=== PATIENT | female | born 1960 | race Caucasian/White ===

== ENCOUNTER → 2019-07-10 | Outpatient (CLI) | payer OTHER ==
--- NOTE | 2019-07-10 12:36 | Diagnostic Imaging Report ---
INDICATION: Left ankle pain AP, lateral, and oblique views of the left ankle are obtained. There is no prior study for comparison. [place] screw is visualized in the calcaneus posteriorly. There is plantar and posterior calcaneal spurring. There is no acute fracture seen. There is accessory ossicle inferior to the medial malleolus of the distal tibia. There are accessory ossicles inferior to the distal tip of the lateral malleolus of the distal fibula. IMPRESSION: Chronic and postsurgical findings as described above with no acute appearing abnormality. Dictated by: Dictated on workstation # [id number]
--- NOTE | 2019-07-10 12:48 | Diagnostic Imaging Report ---
INDICATION: Pain after stepping off a step wrong about a month ago. Continued pain. TECHNIQUE: 3 views of the right foot CORRELATION STUDY: None FINDINGS: The osseous structures of the foot are intact. Joint spaces are maintained. Alignment anatomic. Toes are held in partial flexion, limiting their assessment. [place] screw over the posterior calcaneus. Prominent plantar calcaneal spurring. There is mild ossification Achilles tendon insertion site as well. Minimal endplate lipping at the navicular bone. IMPRESSION: 1. Negative for acute findings of the foot. Dictated by: Dictated on workstation # [id number]
== END ==
LOC: RAD FS 12:09
PROVIDERS: ATTEND Nurse Practitioner Family
DX: M25.571 Pain in right ankle and joints of right foot (principal)
CPT/HCPCS: 73610; 73630

== ENCOUNTER 2020-02-27 15:26 | Emergency (ER) | payer OTHER ==
[~2020-02-27] VITALS: Ht 154.9 cm; Wt 98.4 kg
[2020-02-27] MEDS ORDERED: ASPIRIN 81 MG CHEW (CHILDREN'S ASA) PO ONE (15:45)
[2020-02-27] MEDS ORDERED: NS IV 1000 ML 1,000 ML IV SCH (15:45)
[2020-02-27] MEDS ORDERED: NITROGLYCERIN 0.4 MG SL TABS BTL 25'S SL PRN (15:45)
--- NOTE | 2020-02-27 15:51 | ED Cardiac General ---
History of Present Illness General Chief Complaint: Chest Pain Stated Complaint: CHEST PAIN Source: patient Exam Limitations: no limitations History of Present Illness Date Seen by Provider: Feb 27, 2020 Time Seen by Provider: 15:35 Initial Comments 51-year-old female presents with onset of chest pain 30 minutes prior to ar rival. States she was at work and felt that the day and after leaving began fill pain in her lower center chest with some associated feeling of "jitteriness". On arrival chest pain persist, described as 5 out of 10 intensity with continued feeling of "jitteriness". Patient denies history of coronary artery disease or lung disease. History of diabetes. Takes atenolol, for "extra heart beats". No significant family history of coronary artery disease. 1 week ago had an episode of chest pain during the day at rest which lasted for about 30 minutes and resolved after she took. Pain at that time she states radiated to her left shoulder and jaw. Otherwise denies any previous history of similar episodes besides today and one week ago. HAs never seen a Manufacturing [employer] or had a work-up for heart problems Allergies and Home Medications Allergies Coded Allergies: Penicillins (Verified Allergy, Unknown, 02/27/20) shellfish derived (Verified Allergy, Unknown, 02/27/20) Home Medications Nitroglycerin 0.4 Mg Tab.subl, 0.4 MG SL UD PRN for CHEST PAIN Prescribed by: NARENDRA ROME on 02/27/201913 Patient Home Medication List Home Medication List Reviewed: Yes Review of Systems Review of Systems Constitutional: see HPI; No fever, No malaise, No weakness EENTM: No Symptoms Reported Respiratory: No Symptoms Reported; Denies Cough, Denies Shortness of Air, Denies Stridor, Denies Wheezing Cardiovascular: See HPI, Chest Pain; Denies Edema, Denies Lightheadedness, Denies Palpitations Gastrointestinal: Denies Abdominal Pain, Denies Diarrhea, Denies Nausea, Denies Poor Appetite, Denies Vomiting Genitourinary: No Symptoms Reported Musculoskeletal: no symptoms reported; No back pain, No joint pain, No muscle pain, No muscle weakness, No neck pain Skin: No change in color, No rash Past Owoinzi-Fpnksc-Hvjhgw Hx Past Med/Social Hx: Reviewed Nursing Past Med/Soc Hx Patient Social History Recent Foreign Travel: No Contact w/Someone Who Travel: No Physical Exam Vital Signs Vital Signs - First Documented 02/27/20 15:38 Temp 38.0 Pulse 85 Resp 18 B/P (MAP) 156/81 (106) Pulse Ox 99 O2 Delivery Room Air Capillary Refill : Height, Weight, BMI Height: '" Weight: lbs. oz. kg; BMI Method: General Appearance: No Apparent Distress, WD/WN HEENT: PERRL/EOMI, Normal ENT Inspection Neck: Normal Inspection, Supple Respiratory: Chest Non Tender, Lungs Clear, Normal Breath Sounds, No Accessory Muscle Use Cardiovascular: Regular Rate, Rhythm, No Edema Gastrointestinal: Non Tender, Soft Extremity: Normal Capillary Refill, Normal Inspection, Non Tender Neurologic/Psychiatric: Alert, Oriented x3, Normal Mood/Affect Skin: Normal Color, Warm/Dry Progress/Results/Core Measures Results/Orders Lab Results Laboratory Tests Test 02/27/20 15:33 02/27/20 18:30 Range/Units White Blood Count 10.1 4.3-11.0 10^3/uL Red Blood Count 5.78 4.35-5.85 10^6/uL Hemoglobin 17.3 H 11.5-16.0 G/DL Hematocrit 51 35-52 % Mean Corpuscular Volume 88 80-99 FL Mean Corpuscular Hemoglobin 30 25-34 PG Mean Corpuscular Hemoglobin Concent 34 32-36 G/DL Red Cell Distribution Width 11.9 10.0-14.5 % Platelet Count 234 130-400 10^3/uL Mean Platelet Volume 11.6 H 7.4-10.4 FL Immature Granulocyte % (Auto) 0 % Neutrophils (%) (Auto) 58 42-75 % Lymphocytes (%) (Auto) 33 12-44 % Monocytes (%) (Auto) 9 0-12 % Eosinophils (%) (Auto) 1 0-10 % Basophils (%) (Auto) 0 0-10 % Neutrophils # (Auto) 5.8 1.8-7.8 X 10^3 Lymphocytes # (Auto) 3.3 1.0-4.0 X 10^3 Monocytes # (Auto) 0.9 0.0-1.0 X 10^3 Eosinophils # (Auto) 0.1 0.0-0.3 10^3/uL Basophils # (Auto) 0.0 0.0-0.1 10^3/uL Immature Granulocyte # (Auto) 0.0 0.0-0.1 10^3/uL Sodium Level 140 135-145 MMOL/L Potassium Level 4.3 3.6-5.0 MMOL/L Chloride Level 102 98-107 MMOL/L Carbon Dioxide Level 27 21-32 MMOL/L Anion Gap 11 5-14 MMOL/L Blood Urea Nitrogen 15 7-18 MG/DL Creatinine 0.86 0.60-1.30 MG/DL Estimat Glomerular Filtration Rate > 60 BUN/Creatinine Ratio 17 Glucose Level 165 H 70-105 MG/DL Calcium Level 10.0 8.5-10.1 MG/DL Corrected Calcium 9.7 8.5-10.1 MG/DL Total Bilirubin 0.7 0.1-1.0 MG/DL Aspartate Amino Transf (AST/SGOT) 73 H 5-34 U/L Alanine Aminotransferase (ALT/SGPT) 108 H 0-55 U/L Alkaline Phosphatase 93 40-136 U/L Troponin I < 0.30 < 0.30 <0.30 NG/ML Total Protein 6.9 6.4-8.2 GM/DL Albumin 4.4 3.2-4.5 GM/DL My Orders Orders - ROVENSTINENARENDRA L DO Ed Iv/Invasive Line Start (02/27/20 15:42) Chest 1 View Ap/Pa Only (02/27/20 15:42) Ekg Tracing (02/27/20 15:42) Cbc With Automated Diff (02/27/20 15:42) Comprehensive Metabolic Panel (02/27/20 15:42) Troponin I Fs (02/27/20 15:42) Aspirin Chewable Tablet (Baby Aspirin Ch (02/27/20 15:45) Nitroglycerin 0.4 Mg Btl 25's (Nitrostat (02/27/20 15:45) Ns Iv 1000 Ml (Sodium Chloride 0.9%) (02/27/20 15:45) Ekg Tracing (02/27/20 18:30) Troponin I Fs (02/27/20 18:30) Medications Given in ED Current Medications Medications Dose Ordered Sig/Libby Route Start Time Stop Time Status Last Admin Dose Admin Aspirin 324 mg ONCE ONCE PO 02/27/20 15:45 02/27/20 15:46 DC 02/27/20 15:50 324 MG Nitroglycerin 0.4 mg NEEDED PRN SL 02/27/20 15:45 02/27/20 19:19 DC 02/27/20 15:50 0.4 MG Vital Signs/I&O 02/27/20 02/27/20 15:38 19:27 Temp 38.0 Pulse 85 66 Resp 18 15 B/P (MAP) 156/81 (106) 133/65 Pulse Ox 99 97 O2 Delivery Room Air Room Air Progress Progress Note : Time: 16:15 Progress Note Patient pain-free after 1 nitroglycerin. EKG with very subtle changes and negative troponin. Explained the patient will repeat troponin and EKG and 3 hours and if negative and still not having any episodes of chest pain plan to send home with cardiology follow-up for stress test. Initial ECG Impression Time: 15:40 Initial ECG Rate: 70 Initial ECG Rhythm: Normal Sinus Initial ECG Intervals: Normal Initial ECG Impression: Normal Initial ECG Comparisson: No Previous ECG Available Comment 1mm ST depression lateral leads V4-V6 EKG : EKG Time: 18:30 Rhythm: Normal Sinus Intervals: Normal ECG Comparisson: Unchanged (from ECg 3 hours prior) ECG Impression: Normal, Nonspecific Changes (minimal ST depression (<1mm laterally)) Comment patient asymptomatic Diagnostic Imaging Comments Date of Exam:02/27/20 CHEST 1 VIEW AP/PA ONLY INDICATION: Chest pain. TECHNIQUE: Frontal chest obtained at 03:46 p.m. FINDINGS: Heart and mediastinal silhouette are normal in appearance. Lungs are clear. There is no pneumothorax or pleural fluid. IMPRESSION: Negative chest. Dictated on workstation # [id number] Dict: 02/27/20 1602 Trans: 02/27/20 1604 [id number] [id number] Interpreted by: SONDRA OJEDA MD Electronically signed by: Departure Impression Primary Impression: Chest pain Qualified Codes: R07.9 - Chest pain, unspecified Disposition: 01 HOME, SELF-CARE Condition: Improved Departure-Patient Inst. Decision time for Depature: 19:13 Referrals: NANNETTE OBRIEN MD FACP FAC CCDS ELIDA MANNNIG APRN (PCP) Primary Care Physician Patient Instructions: Chest Pain (DC) Add. Discharge Instructions: Call Dr Obrien's office tomorrow to schedule a "STRESS TEST" Please take 81mg aspirin daily (unless told otherwise by a Physician) All discharge instructions reviewed with patient and/or family. Voiced understanding. Scripts Nitroglycerin (Nitroglycerin) 0.4 Mg Tab.subl 0.4 MG SL UD PRN for CHEST PAIN, #20 TAB Prov: NARENDRA ROME DO 02/27/20 NARENDRA ROME DO Feb 27, 2020 15:51
[2020-02-27 15:52] LABS: BASOPHILS % (AUTO) 0 % (0-10); EOSINOPHILS % (AUTO) 1 % (0-10); HEMATOCRIT 51 % (35-52); HEMOGLOBIN 17.3 G/DL (11.5-16.0); LYMPHOCYTES % (AUTO) 33 % (12-44); MEAN CORPUSCULAR HEMOGLOBIN 30 PG (25-34); MEAN CORPUSCULAR HGB CONC 34 G/DL (32-36); MEAN CORPUSCULAR VOLUME 88 FL (80-99); MEAN PLATELET VOLUME 11.6 FL (7.4-10.4); MONOCYTES % (AUTO) 9 % (0-12); NEUTROPHILS % (AUTO) 58 % (42-75); PLATELET COUNT 234 10^3/uL (130-400); WHITE BLOOD COUNT 10.1 10^3/uL (4.3-11.0)
[2020-02-27 15:53] LABS: EOSINOPHILS # (AUTO) 0.1 10^3/uL (0.0-0.3); LYMPHOCYTES # (AUTO) 3.3 X 10^3 (1.0-4.0); MONOCYTES # (AUTO) 0.9 X 10^3 (0.0-1.0); NEUTROPHILS # (AUTO) 5.8 X 10^3 (1.8-7.8)
--- NOTE | 2020-02-27 16:04 | Diagnostic Imaging Report ---
INDICATION: Chest pain. TECHNIQUE: Frontal chest obtained at 03:46 p.m. FINDINGS: Heart and mediastinal silhouette are normal in appearance. Lungs are clear. There is no pneumothorax or pleural fluid. IMPRESSION: Negative chest. Dictated by: Dictated on workstation # [id number]
[2020-02-27 16:05] LABS: ALKALINE PHOSPHATASE 93 U/L (40-136); BILIRUBIN,TOTAL 0.7 MG/DL (0.1-1.0); BUN/CREATININE RATIO 17; CARBON DIOXIDE 27 MMOL/L (21-32); CHLORIDE 102 MMOL/L (98-107); CREATININE SERUM 0.86 MG/DL (0.60-1.30); GFR ESTIMATED > 60; GLUCOSE 165 MG/DL (70-105); POTASSIUM 4.3 MMOL/L (3.6-5.0); SODIUM 140 MMOL/L (135-145)
[2020-02-27 16:06] LABS: ALANINE AMINOTRANSFERASE 108 U/L (0-55); ALBUMIN 4.4 GM/DL (3.2-4.5); TOTAL PROTEIN 6.9 GM/DL (6.4-8.2)
[2020-02-27] MEDS ORDERED: NITR0.4T39 SL (19:14)
[2020-02-27 19:27] VITALS: BP 133/65
== END 2020-02-27 19:19 | disposition home or self-care (01) ==
LOC: EDUNIT# 15:26 → ER FS 15:27
DX: R07.9 Chest pain, unspecified (principal); E11.9 Type 2 diabetes mellitus without complications; Z88.0 Allergy status to penicillin
CPT/HCPCS: 36415; 71045; 80053; 84484; 85025; 93005

== ENCOUNTER → 2021-10-21 | Outpatient (CLI) | payer OTHER ==
[~2021-10-21] MED LIST: NITR0.4T39 SL
--- NOTE | 2021-10-21 11:14 | Diagnostic Imaging Report ---
INDICATION: Right knee pain, 3 weeks post injury TECHNIQUE: 3 views of the right knee CORRELATION STUDY: None FINDINGS: There is moderate joint space narrowing medially to lesser degree laterally. Marginal osteophyte formation is noted both medially and laterally. Additionally, there is narrowing with spur like formation osteophyte at the distal anterior femur superior and inferior pole of the patella. Rather prominent bony osteophyte projects over the posterior aspect the proximal tibia as well. No acute bony abnormality. Soft tissues are unremarkable. IMPRESSION: 1. Negative for acute bony abnormality of the knee. Advanced tricompartment degenerative changes right knee. Dictated by: Dictated on workstation # [id number]
== END ==
LOC: RAD FS 08:39
PROVIDERS: ATTEND Nurse Practitioner
DX: M17.11 Unilateral primary osteoarthritis, right knee (principal)
CPT/HCPCS: 73562

== ENCOUNTER 2022-03-14 05:45 | Emergency (ER) | payer OTHER ==
[~2022-03-14] VITALS: Ht 61.2 cm; Wt 84.0 kg
[2022-03-14] MEDS: NS IV 1000 ML 1,000 ML IV SCH (06:15)
[2022-03-14] MEDS: ONDANSETRON 4 MG/2 ML (SDV) Z0FRAN IVP ONE (06:16)
[2022-03-14] MEDS: KETOROLAC 30 MG/ML VIAL IVP ONE (06:16)
[2022-03-14] MEDS: morphine INJ 10 MG/ML 1ML (SYR OR VIAL) IVP STA (06:20)
[2022-03-14 06:27] LABS: BASOPHILS % (AUTO) 1 % (0-10); EOSINOPHILS # (AUTO) 0.1 10^3/uL (0.0-0.3); EOSINOPHILS % (AUTO) 1 % (0-10); HEMATOCRIT 27 % (35-52); HEMOGLOBIN 7.5 g/dL (11.5-16.0); LYMPHOCYTES # (AUTO) 1.2 10^3/uL (1.0-4.0); LYMPHOCYTES % (AUTO) 18 % (12-44); MEAN CORPUSCULAR HEMOGLOBIN 18 pg (25-34); MEAN CORPUSCULAR HGB CONC 27 g/dL (32-36); MEAN CORPUSCULAR VOLUME 65 fL (80-99); MONOCYTES # (AUTO) 0.3 10^3/uL (0.0-1.0); MONOCYTES % (AUTO) 4 % (0-12); NEUTROPHILS # (AUTO) 5.2 10^3/uL (1.8-7.8); NEUTROPHILS % (AUTO) 76 % (42-75); PLATELET COUNT 290 10^3/uL (130-400); WHITE BLOOD COUNT 6.9 10^3/uL (4.3-11.0)
[2022-03-14 06:34] LABS: BILIRUBIN,URINE NEGATIVE (NEGATIVE); CLARITY,URINE CLEAR; COLOR,URINE YELLOW; GLUCOSE, URINE (UA) TRACE (NEGATIVE); KETONES,URINE NEGATIVE (NEGATIVE); LEUKOCYTE ESTERASE ,URINE NEGATIVE (NEGATIVE); NITRITE,URINE NEGATIVE (NEGATIVE); PROTEIN,URINE NEGATIVE (NEGATIVE)
--- NOTE | 2022-03-14 06:35 | ED Back Pain ---
General Chief Complaint: Back Problems Stated Complaint: BACK/LOWER ABD PAIN, N/V, NO FEVER Nursing Triage Note: PATIENT REPORTS BACK PAIN LOWER LEFT SIDE RADIATING TO LEFT ABDOMEN PAIN STARTED AT 0400, PATIENT STATES VOMITTING STARTED PRIOR TO ARRIVAL. PATIENT VERBALIZED HX OF KIDNEY STONES. Source of Information: Patient Exam Limitations: No Limitations (KAVIN CAGE DO) History of Present Illness Date Seen by Provider: Mar 14, 2022 Time Seen by Provider: 06:00 Initial Comments Patient is a 61-year-old female with remote history of kidney stones who presents with acute onset left lower flank pain rating to left pelvis waking her from sleep approximately 2 hours prior to ED arrival. Pain is dull rated moderate to severe and is nonreproducible. It is not relieved with position change or movement. Patient reports nausea with vomiting. Denies fever chills or sweats. No urinary frequency urgency or dysuria. No other acute symptoms or complaints. Timing/Duration: Other Severity: Moderate Radiation: Other Method of Injury: Other Modifying Factors: Improves With Other Associated Symptoms: other (KAVIN CAGE DO) Allergies and Home Medications Allergies Coded Allergies: Penicillins (Verified Allergy, Unknown, 02/27/20) shellfish derived (Verified Allergy, Unknown, 02/27/20) Patient Home Medication List Home Medication List Reviewed: Yes (KAVIN CAGE DO) Hydrocodone/Acetaminophen (Hydrocodone-Acetamin 5-325 mg) 5 Mg-325 Mg Tablet, 1 TAB PO Q6H PRN for PAIN-MODERATE (5-7) Prescribed by: BRANT MONTANA on 03/14/22 0711 Nitroglycerin (Nitroglycerin) 0.4 Mg Tab.subl, 0.4 MG SL UD PRN for CHEST PAIN Prescribed by: NARENDRA ROME on 02/27/20 191 Ondansetron (Ondansetron Odt) 4 Mg Tab.rapdis, 4 MG SL Q4H PRN for NAUSEA/VOMITING Prescribed by: KAVIN CAGE on 03/14/22 0640 Review of Systems Constitutional: see HPI EENTM: see HPI Respiratory: see HPI Cardiovascular: see HPI Gastrointestinal: see HPI Genitourinary: see HPI Musculoskeletal: see HPI Skin: see HPI Psychiatric/Neurological: See HPI (KAVIN CAGE DO) All Other Systems Reviewed Negative Unless Noted: No (KAVIN CAGE DO) Past Bmizcal-Mfoxci-Mzdeoc Hx Patient Social History Tobacco Use?: No Use of E-Cig and/or Vaping dev: No Substance use?: No Alcohol Use?: Yes Alcohol type: Wine Alcohol Frequency: Daily (KAVIN CAGE DO) Immunizations Up To Date Influenza Vaccine Up-to-Date: Yes; Up-to-Date First/Initial COVID19 Vaccinat: 2020 (KAVIN CAGE DO) Seasonal Allergies Seasonal Allergies: No (KAVIN CAGE DO) Past Medical History Surgeries: Yes Section, Gallbladder, Hysterectomy Respiratory: No Cardiac: Yes Hypertension Neurological: No Genitourinary: Yes Kidney Stones Gastrointestinal: No Musculoskeletal: No Endocrine: Yes Diabetes, Non-Insulin dep HEENT: No Cancer: No Psychosocial: No Integumentary: No Blood Disorders: No (KAVIN CAGE DO) Physical Exam Vital Signs Vital Signs - First Documented 03/14/22 05:54 Temp 36.9 Pulse 62 Resp 20 B/P (MAP) 138/59 (85) Pulse Ox 99 O2 Delivery Room Air (BRANT MONTANA MD) Vital Signs Capillary Refill : Less Than 3 Seconds (KAVIN CAGE DO) Height, Weight, BMI Height: '" Weight: lbs. oz. kg; 224.00 BMI Method: General Appearance: Moderate Distress HEENT: PERRL/EOMI, Normal ENT Inspection Neck: Normal Inspection, Non Tender Cardiovascular: Regular Rate, Rhythm Respiratory: Lungs Clear Gastrointestinal: Non Tender Back: CVA Tenderness (L) Neurologic/Psychiatric: Alert, Oriented x3 (KAVIN CAGE DO) Progress/Results/Core Measures Results/Orders Lab Results Laboratory Tests Test 03/14/22 06:00 Range/Units White Blood Count 6.9 4.3-11.0 10^3/uL Red Blood Count 4.23 3.80-5.11 10^6/uL Hemoglobin 7.5 L 11.5-16.0 g/dL Hematocrit 27 L 35-52 % Mean Corpuscular Volume 65 L 80-99 fL Mean Corpuscular Hemoglobin 18 L 25-34 pg Mean Corpuscular Hemoglobin Concent 27 L 32-36 g/dL Red Cell Distribution Width 18.6 H 10.0-14.5 % Platelet Count 290 130-400 10^3/uL Mean Platelet Volume 9.0-12.2 fL Immature Granulocyte % (Auto) 0 % Neutrophils (%) (Auto) 76 H 42-75 % Lymphocytes (%) (Auto) 18 12-44 % Monocytes (%) (Auto) 4 0-12 % Eosinophils (%) (Auto) 1 0-10 % Basophils (%) (Auto) 1 0-10 % Neutrophils # (Auto) 5.2 1.8-7.8 10^3/uL Lymphocytes # (Auto) 1.2 1.0-4.0 10^3/uL Monocytes # (Auto) 0.3 0.0-1.0 10^3/uL Eosinophils # (Auto) 0.1 0.0-0.3 10^3/uL Basophils # (Auto) 0.0 0.0-0.1 10^3/uL Immature Granulocyte # (Auto) 0.0 0.0-0.1 10^3/uL Percent Immature Platelet Fraction 7.6 0.0-7.6 % Urine Color YELLOW Urine Clarity CLEAR Urine pH 6.0 5-9 Urine Specific [place] 1.025 H 1.016-1.022 Urine Protein NEGATIVE NEGATIVE Urine Glucose (UA) TRACE H NEGATIVE Urine Ketones NEGATIVE NEGATIVE Urine Nitrite NEGATIVE NEGATIVE Urine Bilirubin NEGATIVE NEGATIVE Urine Urobilinogen 0.2 < = 1.0 MG/DL Urine Leukocyte Esterase NEGATIVE NEGATIVE Urine RBC (Auto) TRACE-I H NEGATIVE Urine RBC NONE /HPF Urine WBC 10-25 H /HPF Urine Squamous Epithelial Cells 10-25 H /HPF Urine Crystals NONE /LPF Urine Bacteria LARGE H /HPF Urine Casts NONE /LPF Urine Mucus LARGE H /LPF Urine Culture Indicated YES Sodium Level 141 135-145 MMOL/L Potassium Level 3.8 3.6-5.0 MMOL/L Chloride Level 105 98-107 MMOL/L Carbon Dioxide Level 23 21-32 MMOL/L Anion Gap 13 5-14 MMOL/L Blood Urea Nitrogen 14 7-18 MG/DL Creatinine 0.74 0.60-1.30 MG/DL Estimat Glomerular Filtration Rate 93 BUN/Creatinine Ratio 19 Glucose Level 229 H 70-105 MG/DL Calcium Level 8.8 8.5-10.1 MG/DL Corrected Calcium 9.1 8.5-10.1 MG/DL Total Bilirubin 0.5 0.1-1.0 MG/DL Aspartate Amino Transf (AST/SGOT) 16 5-34 U/L Alanine Aminotransferase (ALT/SGPT) 13 0-55 U/L Alkaline Phosphatase 89 40-136 U/L Total Protein 6.0 L 6.4-8.2 GM/DL Albumin 3.6 3.2-4.5 GM/DL (BRANT MONTANA MD) My Orders Orders - BRANT MONTANA MD Oxycodone Immediate Rel Tablet (Oxyir Ta (03/14/22 07:30) (BRANT MONTANA MD) Medications Given in ED Current Medications Medications Dose Ordered Sig/Libby Route Start Time Stop Time Status Last Admin Dose Admin Fentanyl Citrate 25 mcg ONCE PRN IVP 03/14/22 07:00 03/14/22 07:43 DC 03/14/22 07:06 25 MCG Ketorolac Tromethamine 30 mg ONCE ONCE IVP 03/14/22 06:15 03/14/22 06:16 DC 03/14/22 06:16 30 MG Ondansetron HCl 4 mg ONCE ONCE IVP 03/14/22 06:15 03/14/22 06:16 DC 03/14/22 06:16 4 MG Oxycodone HCl 5 mg ONCE ONCE PO 03/14/22 07:30 03/14/22 07:31 DC 03/14/22 07:30 5 MG (BRANT MONTANA MD) Vital Signs/I&O 03/14/22 03/14/22 05:54 07:40 Temp 36.9 36.9 Pulse 62 68 Resp 20 18 B/P (MAP) 138/59 (85) 135/62 Pulse Ox 99 100 O2 Delivery Room Air Room Air (BRANT MONTANA MD) Blood Pressure Mean: 85 Progress Progress Note : Progress Note Received the patient in signout pending reassessment for pain control. She rec eived some fentanyl followed by oral oxycodone with good pain control. She was then discharged home with expectant management of her kidney stone. She was sent home with strict return precautions (BRANT MONTANA MD) Departure Communication (Admissions) CT abdomen pelvis: Approximately 5 mm infrarenal ureteral stone with mild hydro nephrosis on left side. Left flank pain moderate to severe flank pain with nausea concerning for kidney stone. IV fluids, antiemetics and narcotics given for symptom relief. Patient with 5 mm kidney stone. Pain improved with treatment. Outpatient urology follow-up provided. Incidental finding of subacute. 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 Patient denies blood in his stool or dark tarry stools. Recommendations are for the patient to follow- up with her PCP for repeat ultrasounds of lower extremities and management of anticoagulation therapy. Return precautions reviewed. Patient verbalizes understanding agreement discharge instructions prior to departure. (KAVIN CAGE DO) Impression Primary Impression: Acute left flank pain Additional Impressions: Kidney stone Anemia Qualified Codes: D50.9 - Iron deficiency anemia, unspecified Disposition: HOME, SELF-CARE Condition: Stable Departure-Patient Inst. Decision time for Depature: 07:15 (BRANT MONTANA MD) Referrals: ELIDA MANNING APRN (PCP) Primary Care Physician [facility] (Family) Primary Care Physician Patient Instructions: Kidney Stone, Adult ED, Anemia, Possibly From Low Iron, Adult ED Add. Discharge Instructions: You were evaluated in the emergency department for left flank pain. Your symptoms are consistent with kidney disease known. Please increase fluids, strain urine for stone, take pain and nausea medication as directed contact Dr. [phone] schedule follow-up appointment. The meantime if you develop new or worsening symptoms, return to the ED. Basic labs were obtained and are diagnostic of anemia. Your hemoglobin is 7.5. Please follow-up with your PCP on Wednesday for reevaluation of lower extremity DVTs. You may benefit from ultrasound of lower extremities and discontinuance of Xarelto if blood clots are no longer present. You may also benefit from an further work-up of the anemia to determine the source of blood loss. All discharge instructions reviewed with patient and/or family. Voiced understanding. Scripts Hydrocodone/Acetaminophen (Hydrocodone-Acetamin 5-325 mg) 5 Mg-325 Mg Tablet 1 TAB PO Q6H PRN for PAIN-MODERATE (5-7) for 3 Days, #12 TAB Prov: BRANT MONTANA MD 03/14/22 Ondansetron (Ondansetron Odt) 4 Mg Tab.rapdis 4 MG SL Q4H PRN for NAUSEA/VOMITING, #12 TAB Prov: KAVIN CAGE DO 03/14/22 KAVIN CAGE DO Mar 14, 2022 06:34 BRANT MONTANA MD Mar 14, 2022 07:11
[2022-03-14 06:38] LABS: BACTERIA,URINE LARGE /HPF
[2022-03-14] MEDS ORDERED: ACHD5005 PO ×2 (06:40→07:11)
[2022-03-14] MEDS ORDERED: ONDA4TAB11 SL (06:40)
--- NOTE | 2022-03-14 06:46 | Diagnostic Imaging Report ---
PROCEDURE: CT abdomen and pelvis without contrast. TECHNIQUE: Multiple contiguous axial images were obtained through the abdomen and pelvis without the use of intravenous contrast. Auto Exposure Controls were utilized during the CT exam to meet ALARA standards for radiation dose reduction. INDICATION: Right-sided flank pain. COMPARISON: None. DISCUSSION: Minimal atelectasis noted within the right lung base. Normal heart size. No pleural or pericardial fluid. The gallbladder is surgically absent. The liver, stomach, pancreas, spleen, and adrenal glands are unremarkable. Small hiatal hernia. There is a 4 mm stone within the proximal most left ureter with moderate left hydronephrosis and some perinephric stranding. Underlying pyelonephritis cannot be excluded. No stone or hydronephrosis on the right. The aorta is normal in caliber. Bladder is decompressed. However there does appear to be some inflammatory changes along the bladder suggesting superimposed cystitis. Uterus is surgically absent. No ascites or adenopathy. The large and small bowel loops appear within normal limits. No osseous abnormality identified. IMPRESSION: 1. A 4 mm stone within the proximal most left ureter with moderate left-sided hydronephrosis. Additional inflammatory changes noted along the left kidney and also along the decompressed urinary bladder suggesting possible cystitis and pyelonephritis. Recommend clinical correlation. No stone or hydronephrosis on the right. Dictated by: Dictated on workstation # [id number]
[2022-03-14 06:56] LABS: ALBUMIN 3.6 GM/DL (3.2-4.5); BILIRUBIN,TOTAL 0.5 MG/DL (0.1-1.0); CALCIUM 8.8 MG/DL (8.5-10.1); CREATININE SERUM 0.74 MG/DL (0.60-1.30); POTASSIUM 3.8 MMOL/L (3.6-5.0)
[2022-03-14] MEDS: fentaNYL INJ 100 MCG/2 ML AMP IVP PRN (07:06)
[2022-03-14 07:40] VITALS: BP 135/62
== END 2022-03-14 07:40 | disposition home or self-care (01) ==
LOC: EDUNIT# 05:45 → ER FS 05:47
DX: N13.2 Hydronephrosis with renal and ureteral calculous obstruction (principal); D64.9 Anemia, unspecified; Z86.718 Personal history of other venous thrombosis and embolism; Z86.16 Personal history of COVID-19; Z28.310 Unvaccinated for COVID-19; Z79.01 Long term (current) use of anticoagulants
CPT/HCPCS: 36415; 74176; 80053; 81000; 85025; 87088

== ENCOUNTER 2022-03-14 19:03 | Emergency (ER) | payer OTHER ==
[~2022-03-14] VITALS: Ht 61.2 cm; Wt 84.0 kg
[~2022-03-14 19:03] MED LIST changes: +ACHD5005 PO; +ONDA4TAB11 SL
[2022-03-14] MEDS ORDERED: CEFEPIME INJECTION 1,000 MG in NS (IVPB) 50 ML IV ONE (19:30)
[2022-03-14] MEDS ORDERED: ACETAMINOPHEN 500 MG TAB (TYLENOL) PO ONE (19:30)
[2022-03-14 19:31] LABS: BASOPHILS % (AUTO) 0 % (0-10); EOSINOPHILS % (AUTO) 0 % (0-10); HEMATOCRIT 24 % (35-52); LYMPHOCYTES # (AUTO) 0.3 10^3/uL (1.0-4.0); LYMPHOCYTES % (AUTO) 3 % (12-44); MEAN CORPUSCULAR HEMOGLOBIN 18 pg (25-34); MEAN CORPUSCULAR HGB CONC 29 g/dL (32-36); MEAN CORPUSCULAR VOLUME 64 fL (80-99); MONOCYTES # (AUTO) 0.2 10^3/uL (0.0-1.0); MONOCYTES % (AUTO) 2 % (0-12); NEUTROPHILS # (AUTO) 11.9 10^3/uL (1.8-7.8); NEUTROPHILS % (AUTO) 95 % (42-75); PLATELET COUNT 206 10^3/uL (130-400); WHITE BLOOD COUNT 12.5 10^3/uL (4.3-11.0)
[2022-03-14] MEDS: NS IV 1000 ML 1,000 ML IV SCH ×2 (19:33→19:34)
[2022-03-14 19:36] LABS: HEMOGLOBIN 6.8 g/dL (11.5-16.0)
[2022-03-14 19:48] LABS: INR 1.3 (0.8-1.4); PROTHROMBIN TIME PATIENT 17.1 SEC (12.2-14.7)
[2022-03-14 19:54] LABS: ALBUMIN 3.1 GM/DL (3.2-4.5); BILIRUBIN,TOTAL 1.4 MG/DL (0.1-1.0); CALCIUM 8.1 MG/DL (8.5-10.1); CREATININE SERUM 1.19 MG/DL (0.60-1.30); POTASSIUM 3.4 MMOL/L (3.6-5.0); TOTAL PROTEIN 5.3 GM/DL (6.4-8.2)
[2022-03-14] MEDS ORDERED: LACTATED RINGERS 1,000 ML IV STA (20:14)
--- NOTE | 2022-03-14 20:18 | ED General ---
General Chief Complaint: Fever-Adult/Adol Stated Complaint: FEVER Nursing Triage Note: PATIENT SEEN HER EARLIER TODAY WITH COMPLAINT OF BACK PAIN. PATIENT TREATED FOR KIDNEY STONES. PATIENT ARRIVED TONIGHT WITH COMPLAINT OF FEVER. STATES 103 AT HOME. PATIENT LETHARGIC/DRAWSY. STATES SHE TOOK A PAIN MED AROUND 11 TODAY BUT HAS NOT TAKEN ANYTHING FOR THE FEVER. Source of Information: Patient, Old Records Exam Limitations: No Limitations History of Present Illness Date Seen by Provider: Mar 14, 2022 Time Seen by Provider: 19:07 Initial Comments 61-year-old female with a PMH of kidney stones as well as previous DVT on Xarelto (has been on the anticoagulation for over 3 months, DVT was thought to be instigated by her COVID infection) coming in with a known 4 mm kidney stone on the left now with fever and general malaise. Started having pain at 4am which woke her up. Presented to the ER this morning and was diagnosed with the stone and discharged home well appearing with expectant management of a trial of passage at home. Took hydrocodone earlier this morning around 11 AM, has not had significant pain since then. States she has not passed the stone that she knows of. Started feeling worse again tonight with the new fever. Denies any nausea, vomiting, diarrhea, focal weakness or numbness, or any other concerns. Allergies and Home Medications Allergies Coded Allergies: Penicillins (Verified Allergy, Unknown, 02/27/20) shellfish derived (Verified Allergy, Unknown, 02/27/20) Patient Home Medication List Home Medication List Reviewed: Yes Hydrocodone/Acetaminophen (Hydrocodone-Acetamin 5-325 mg) 5 Mg-325 Mg Tablet, 1 TAB PO Q6H PRN for PAIN-MODERATE (5-7) Prescribed by: BRANT MONTANA on 03/14/22 0711 Nitroglycerin (Nitroglycerin) 0.4 Mg Tab.subl, 0.4 MG SL UD PRN for CHEST PAIN Prescribed by: NARENDRA ROME on 02/27/20 191 Ondansetron (Ondansetron Odt) 4 Mg Tab.rapdis, 4 MG SL Q4H PRN for NAUSEA/VOMITING Prescribed by: KAVIN CAGE on 03/14/22 0640 Review of Systems Review of Systems Constitutional: fever, malaise EENTM: no symptoms reported Respiratory: no symptoms reported Cardiovascular: no symptoms reported Gastrointestinal: no symptoms reported Genitourinary: see HPI Musculoskeletal: no symptoms reported Skin: no symptoms reported Psychiatric/Neurological: No Symptoms Reported Hematologic/Lymphatic: No Symptoms Reported Immunological/Allergic: no symptoms reported All Other Systems Reviewed Negative Unless Noted: Yes Past Riytkft-Dlbzpa-Jgoxcb Hx Patient Social History Tobacco Use?: No Alcohol Use?: Yes Alcohol type: Wine Alcohol Frequency: Daily Immunizations Up To Date Influenza Vaccine Up-to-Date: No; Not Current First/Initial COVID19 Vaccinat: 2020 Seasonal Allergies Seasonal Allergies: No Past Medical History Surgery/Hospitalization HX: HX OF KIDNEY STONES Surgeries: Yes Section, Gallbladder, Hysterectomy Respiratory: No Cardiac: Yes Hypertension Neurological: No Genitourinary: Yes Kidney Stones Gastrointestinal: No Musculoskeletal: No Endocrine: Yes Diabetes, Non-Insulin dep HEENT: No Cancer: No Psychosocial: No Integumentary: No Blood Disorders: No Physical Exam Vital Signs Vital Signs - First Documented 03/14/22 03/14/22 03/14/22 19:13 19:23 21:38 Temp 39.5 Pulse 118 Resp 16 B/P (MAP) 105/44 (64) Pulse Ox 91 O2 Delivery Room Air O2 Flow Rate 2.00 FiO2 40 Capillary Refill : Less Than 3 Seconds Height, Weight, BMI Height: '" Weight: lbs. oz. kg; 224.00 BMI Method: General Appearance: No Apparent Distress, WD/WN Eyes: Bilateral Eye Normal Inspection HEENT: PERRL/EOMI, Normal ENT Inspection, Pharynx Normal Neck: Full Range of Motion, Normal Inspection, Non Tender, Supple Respiratory: Chest Non Tender, Lungs Clear, Normal Breath Sounds, No Accessory Muscle Use, No Respiratory Distress Cardiovascular: No Edema, Normal Peripheral Pulses, Tachycardia Gastrointestinal: Normal Bowel Sounds, Non Tender, Soft Back: Normal Inspection, No CVA Tenderness Extremity: Normal Capillary Refill, Normal Inspection, Normal Range of Motion, Non Tender, No Calf Tenderness, No Pedal Edema Neurologic/Psychiatric: Alert, No Motor/Sensory Deficits, Normal Mood/Affect Skin: Normal Color, Warm/Dry Lymphatic: No Adenopathy Focused Exam Lactate Level 03/14/22 19:23: Lactic Acid Level 7.89*H 03/14/22 21:23: Lactic Acid Level 7.10*H Lactic Acid Level Laboratory Tests Test 03/14/22 19:23 03/14/22 21:23 Lactic Acid Level 7.89 MMOL/L (0.50-2.00) *H 7.10 MMOL/L (0.50-2.00) *H Procedures/Interventions Lumen: triple Central Line Procedure: sterile drapes applied (Chlorhexidine prep) Position: internal jugular (R) Anesthesia: Lidocaine Volume Anesthetic (ccs): 4 Complications: none Post Position: sutured, good blood return, position confirmed w/ CXR Central and was placed under emergent conditions. Verbal consent was obtained by the patient. Chest x-ray initially with the central line appearing to be well into the right atrium. It was pulled back with repeat x-ray with it in good position. Progress/Results/Core Measures Suspected Sepsis SIRS Temperature: Pulse: 118 Respiratory Rate: 16 Laboratory Tests 03/14/22 19:23: White Blood Count 12.5H Blood Pressure 105 /44 Mean: 64 03/14/22 19:23: Lactic Acid Level 7.89*H 03/14/22 21:23: Lactic Acid Level 7.10*H Laboratory Tests 03/14/22 19:23: Creatinine 1.19, INR Comment 1.3, Platelet Count 206, Total Bilirubin 1.4H Results/Orders Lab Results Laboratory Tests Test 03/14/22 19:23 03/14/22 21:23 Range/Units White Blood Count 12.5 H 4.3-11.0 10^3/uL Red Blood Count 3.73 L 3.80-5.11 10^6/uL Hemoglobin 6.8 *L 11.5-16.0 g/dL Hematocrit 24 L 35-52 % Mean Corpuscular Volume 64 L 80-99 fL Mean Corpuscular Hemoglobin 18 L 25-34 pg Mean Corpuscular Hemoglobin Concent 29 L 32-36 g/dL Red Cell Distribution Width 18.4 H 10.0-14.5 % Platelet Count 206 130-400 10^3/uL Mean Platelet Volume 9.0-12.2 fL Immature Granulocyte % (Auto) 1 % Neutrophils (%) (Auto) 95 H 42-75 % Lymphocytes (%) (Auto) 3 L 12-44 % Monocytes (%) (Auto) 2 0-12 % Eosinophils (%) (Auto) 0 0-10 % Basophils (%) (Auto) 0 0-10 % Neutrophils # (Auto) 11.9 H 1.8-7.8 10^3/uL Lymphocytes # (Auto) 0.3 L 1.0-4.0 10^3/uL Monocytes # (Auto) 0.2 0.0-1.0 10^3/uL Eosinophils # (Auto) 0.0 0.0-0.3 10^3/uL Basophils # (Auto) 0.0 0.0-0.1 10^3/uL Immature Granulocyte # (Auto) 0.1 0.0-0.1 10^3/uL Prothrombin Time 17.1 H 12.2-14.7 SEC INR Comment 1.3 0.8-1.4 Activated Partial Thromboplast Time 29 24-35 SEC Sodium Level 131 L 135-145 MMOL/L Potassium Level 3.4 L 3.6-5.0 MMOL/L Chloride Level 97 L 98-107 MMOL/L Carbon Dioxide Level 14 L 21-32 MMOL/L Anion Gap 20 H 5-14 MMOL/L Blood Urea Nitrogen 19 H 7-18 MG/DL Creatinine 1.19 0.60-1.30 MG/DL Estimat Glomerular Filtration Rate 52 BUN/Creatinine Ratio 16 Glucose Level 203 H 70-105 MG/DL Lactic Acid Level 7.89 *H 7.10 *H 0.50-2.00 MMOL/L Calcium Level 8.1 L 8.5-10.1 MG/DL Corrected Calcium 8.8 8.5-10.1 MG/DL Total Bilirubin 1.4 H 0.1-1.0 MG/DL Aspartate Amino Transf (AST/SGOT) 22 5-34 U/L Alanine Aminotransferase (ALT/SGPT) 15 0-55 U/L Alkaline Phosphatase 77 40-136 U/L Total Protein 5.3 L 6.4-8.2 GM/DL Albumin 3.1 L 3.2-4.5 GM/DL My Orders Orders - BRANT MONTANA MD Cbc With Automated Diff (03/14/22 19:20) Comprehensive Metabolic Panel (03/14/22 19:20) Blood Culture (03/14/22 19:20) Protime With Inr (03/14/22 19:20) Partial Thromboplastin Time (03/14/22 19:20) Ed Iv/Invasive Line Start (03/14/22 19:20) Vital Signs Adult Sepsis Patie Q15M (03/14/22 19:20) O2 (03/14/22 19:20) Remove Rings In Anticipation O (03/14/22 19:20) Lactic Acid Analyzer (03/14/22 19:20) Ns Iv 1000 Ml (Sodium Chloride 0.9%) (03/14/22 19:30) Cefepime Injection (Maxipime Injection) (03/14/22 19:30) Acetaminophen Tablet (Tylenol Tablet) (03/14/22 19:30) Lactated Ringers (Lr 1000 Ml Iv Solution (03/14/22 20:14) Fentanyl Inj (Sublimaze Injection) (03/14/22 21:00) O2 (03/14/22 21:10) Ibuprofen Tablet (Motrin Tablet) (03/14/22 21:15) Chest 1 View Ap/Pa Only (03/14/22 21:25) Ekg Tracing (03/14/22 21:26) Norepinephrine 8 Mg/250 Ml (Norepinephri (03/14/22 22:27) Norepinephrine 8 Mg/250 Ml (Norepinephri (03/14/22 22:26) Chest 1 View Ap/Pa Only (03/14/22 22:57) Medications Given in ED Current Medications Medications Dose Ordered Sig/Libby Route Start Time Stop Time Status Last Admin Dose Admin Acetaminophen 1,000 mg ONCE ONCE PO 03/14/22 19:30 03/14/22 19:31 DC 03/14/22 19:32 1,000 MG Cefepime HCl 1000 mg/Sodium Chloride 50 ml @ 100 mls/hr ONCE ONCE IV 03/14/22 19:30 03/14/22 19:59 DC 03/14/22 19:34 100 MLS/HR Fentanyl Citrate 50 mcg ONCE ONCE IVP 03/14/22 21:00 03/14/22 21:01 DC 03/14/22 21:05 50 MCG Ibuprofen 600 mg ONCE ONCE PO 03/14/22 21:15 03/14/22 21:16 DC 03/14/22 21:14 600 MG Vital Signs/I&O 03/14/22 03/14/22 03/14/22 03/14/22 19:13 19:23 19:32 20:38 Temp 39.5 39.4 38.9 Pulse 118 116 Resp 16 18 B/P (MAP) 105/44 (64) 104/51 (68) Pulse Ox 91 91 94 O2 Delivery Room Air Nasal Cannula Nasal Cannula O2 Flow Rate 2.00 2.00 03/14/22 03/14/22 03/14/22 03/14/22 20:50 21:14 21:38 22:39 Temp 39.4 Pulse 112 B/P (MAP) 81/36 Pulse Ox 91 97 O2 Delivery Nasal Cannula NIV Bilevel O2 Flow Rate 4.00 FiO2 40 03/14/22 03/14/22 03/14/22 03/14/22 22:44 22:54 23:05 23:09 Pulse 111 109 108 104 B/P (MAP) 85/43 81/50 89/27 95/41 Capillary Refill : Less Than 3 Seconds Blood Pressure Mean: 64 Progress Note : Progress Note 61-year-old female with above history coming in due to known kidney stone, now with fever, is tachycardic, blood pressure trending down. I am concerned the patient is septic from likely pyelonephritis from the obstructed kidney stone. An IV was placed and she was given initially 2 L of IV fluids. Cefepime ordered empirically. Blood cultures, lactic acid, basic labs ordered. Lactic acid elevated greater than 7, white blood cell count almost doubled from this morning, creatinine around 1.1 which is also worse from this morning. She had a microcytic anemia this morning with a hemoglobin of 7.5. It is 6.8 tonight which could be delusional with the fluids given. She has been on the Xarelto for the DVT. The DVT was her first time, and it was instigated by COVID. She has been on it for over 3 months, so I will hold the Xarelto for tonight and they can discuss restarting it at some other time. Since she does not appear to have any active bleeding right now including having brown stools and no obvious signs of a GI bleed, we will forego giving the 1 unit of emergent blood we have in this facility. If she were to decompensate or show signs of acute blood loss, she could receive that unit of blood. I contacted Irene Shea given that we do not have a urologist on-call. Dr. Sanchez with urology discussed the case with me, [facility] for a [facility]. The patient's blood pressure continued to trend down with a MAP in the 50s, blood pressure 90s over 40s. She required continued resuscitation with an extra L of IV fluids for a total of 3 L. Unfortunately, her respiratory status started to decline after the third liter of IV fluids with her oxygen requirement going up. Eventually her work of breathing increased significantly and my concern was for pulmonary edema. Chest x-ray ordered and interpreted by me is consistent with pulmonary edema likely from the resuscitation she required. She was transitioned to BiPAP with significant improvement in her work of breathing. I discussed the case with Dr. Pacheco, the ICU physician at [facility] who will accept the patient for transport. Update 22:00: Blood pressure continues to drop despite 3 L of fluid resuscitation. Patient was started on IV norepinephrine. Central line was then placed under emergent conditions. Chest x-ray after central line placed showed it was slightly deep at least into the right atrium. It was pulled back with repeat chest x-ray in good position. 22:56: Irene Monse called back and we have a room so we can go forward with transport ECG Initial ECG Impression Date: Mar 14, 2022 Initial ECG Impression Time: 21:37 Initial ECG Rate: 134 Initial ECG Rhythm: S.Tach Comment Narrow QRS, normal axis, some baseline wander, but accounting for that no STEMI Diagnostic Imaging Diagonstic Imaging: CT (abd/pelvis) Comments [facility]. [place], [place] NAME: SHELIA DWYER [facility] REC#: [id number] PT STATUS: DEP ER : 1960 PHYSICIAN: KAVIN CAGE DO ADMIT DATE: 03/14/22/ER FS Signed Date of Exam:03/14/22 CT ABDOMEN/PELVIS WO PROCEDURE: CT abdomen and pelvis without contrast. TECHNIQUE: Multiple contiguous axial images were obtained through the abdomen and pelvis without the use of intravenous contrast. Auto Exposure Controls were utilized during the CT exam to meet ALARA standards for radiation dose reduction. INDICATION: Right-sided flank pain. COMPARISON: None. DISCUSSION: Minimal atelectasis noted within the right lung base. Normal heart size. No pleural or pericardial fluid. The gallbladder is surgically absent. The liver, stomach, pancreas, spleen, and adrenal glands are unremarkable. Small hiatal hernia. There is a 4 mm stone within the proximal most left ureter with moderate left hydronephrosis and some perinephric stranding. Underlying pyelonephritis cannot be excluded. No stone or hydronephrosis on the right. The aorta is normal in caliber. Bladder is decompressed. However there does appear to be some inflammatory changes along the bladder suggesting superimposed cystitis. Uterus is surgically absent. No ascites or adenopathy. The large and small bowel loops appear within normal limits. No osseous abnormality identified. IMPRESSION: 1. A 4 mm stone within the proximal most left ureter with moderate left-sided hydronephrosis. Additional inflammatory changes noted along the left kidney and also along the decompressed urinary bladder suggesting possible cystitis and pyelonephritis. Recommend clinical correlation. No stone or hydronephrosis on the right. Dictated by: Dictated on workstation # [id number] Dict: 03/14/22 0642 Trans: 03/14/22 1422 [facility] [id number] Interpreted by: LENORE GUEVARA MD Electronically signed by: LENORE GUEVARA MD 03/14/22 1422 Critical Care Note Critical Care Start Time: 19:07 Stop Time: 21:55 Total Time (minutes) 78 Progress The patient was hypotensive, later hypoxic, requiring resuscitation and frequent reassessment. Time was spent chart reviewing from her previous ER visit as well as discussing with multiple other physicians. 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 Pending callback from urologist. Called back at 20:48, still have not heard back from urologist there about accepting her. Received call back at 21:25 and discussed with urologist. Later discussed with ICU physician who accepted her for transport. Awaiting bed placement at 21:40. Once bed assigned will transfer. Transfer Facility: [facility] Method of Transfer: EMS Departure-Patient Inst. Referrals: ELIDA MANNING APRN (PCP) Primary Care Physician [facility] (Family) Primary Care Physician BRANT MONTANA MD Mar 14, 2022 20:18
[2022-03-14] MEDS ORDERED: fentaNYL INJ 100 MCG/2 ML AMP IVP ONE (21:00)
[2022-03-14] MEDS ORDERED: IBUPROFEN 600 MG (MOTRIN) TAB PO ONE (21:15)
--- NOTE | 2022-03-14 21:45 | Diagnostic Imaging Report ---
INDICATION: Shortness of breath and hypoxia. EXAMINATION: Chest 03/14/2022 COMPARISON: 02/27/2020 FINDINGS: There is cardiomegaly with vascular congestion. Findings of edema throughout both lungs. No effusions or pneumothorax. IMPRESSION: 1. Pulmonary edema. Dictated by: Dictated on workstation # [id number]
[2022-03-14] MEDS ORDERED: NOREPINEPHRINE 8 MG/250 ML 250 ML IV ONE (22:26)
[2022-03-14] MEDS ORDERED: NOREPINEPHRINE 8 MG/250 ML 250 ML IV STA (22:27)
[2022-03-14 23:42] VITALS: BP 91/44
--- NOTE | 2022-03-15 06:45 | Diagnostic Imaging Report ---
INDICATION: Line placement. Comparison is made with prior examination of 03/14/2022. FINDINGS: There is cardiomegaly and mild central pulmonary venous congestion. There are patchy bibasilar pulmonary infiltrates. There is no pleural effusion or pneumothorax. The mediastinum is unremarkable. There is right internal jugular central venous catheter which has its tip in the superior vena cava. IMPRESSION: The central venous catheter is in the upper superior vena cava. Patchy bibasilar pulmonary infiltrates Cardiomegaly and some central pulmonary venous congestion Dictated by: Dictated on workstation # [id number]
== END 2022-03-14 23:42 | disposition short-term general hospital (02) ==
LOC: EDUNIT# 19:03 → ER FS 19:10
DX: A41.9 Sepsis, unspecified organism (principal); R65.20 Severe sepsis without septic shock; N13.2 Hydronephrosis with renal and ureteral calculous obstruction; J96.91 Respiratory failure, unspecified with hypoxia; N12 Tubulo-interstitial nephritis, not specified as acute or chronic; D50.9 Iron deficiency anemia, unspecified; I95.9 Hypotension, unspecified; R74.02 Elevation of levels of lactic acid dehydrogenase [LDH]; Z86.718 Personal history of other venous thrombosis and embolism; Z86.16 Personal history of COVID-19; Z88.0 Allergy status to penicillin; Z28.310 Unvaccinated for COVID-19; Z79.01 Long term (current) use of anticoagulants
CPT/HCPCS: 36415; 71045; 80053; 83605; 85025; 85610; 85730; 87040; 93005; 93041